=== PATIENT | male | born 1950 | race Caucasian/White ===

== ENCOUNTER 2021-11-03 08:22 | Outpatient (CLI) | payer OTHER, MEDICARE | END 2021-11-03 08:23 | disposition home or self-care (01) | LOC: CSHMRI 08:22 | PROVIDERS: ATTEND Family Medicine | DX: R41.3 Other amnesia (principal); R94.02 Abnormal brain scan; J32.9 Chronic sinusitis, unspecified | CPT/HCPCS: 70551 ==